=== PATIENT | male | born 1955 | race Hispanic/Latino ===

== ENCOUNTER 2018-07-18 22:29 | Observation (INO) | payer OTHER, SELFPAY ==
[2018-07-18 22:53] LABS: #Basophils 0.1 thou/uL (0.0-0.2); #Eosinphils 0.3 thou/uL (0.0-0.7); #Lymphocytes 3.5 thou/uL (1.20-3.40); #Monocytes 0.7 thou/uL (0.11-0.59); #Neutrophils 4.1 thou/uL (1.40-6.50); %Eosinophils 3.7 % (0.0-10.0); %Lymphocytes 40.1 % (21.0-51.0); %Monocytes 8.1 % (0.0-10.0); %Neutrophils 47.1 % (42.0-75.0); Mean Corpuscular HGB CONC 34.6 g/dL (32.0-36.0); Mean Corpuscular Hemoglobin 30.8 pg (27.0-31.0); Mean Corpuscular Volume 88.9 fL (78.0-98.0); Mean Platelet Volume 7.7 fL (7.4-10.4); Platelet Count 182 thou/uL (130-400); RBC Distribution Width 11.3 % (11.5-14.5); Red Blood Cell (RBC) Count 4.86 mill/uL (4.70-6.10); White Blood Cell (WBC) Count 8.7 thou/uL (4.8-10.8)
--- NOTE | 2018-07-18 23:01 | RAD ---
CHEST ONE VIEW: 07/18/18 HISTORY: Chest pain and shortness of breath. Heart size is within normal limits. There is some old granuloma calcifications. No confluent pneumoni a, overt edema or pleural effusion. IMPRESSION: No acute intrathoracic disease. Old granulomatous disease. Atherosclerosis of the aorta. POS: [facility]
[2018-07-18 23:15] LABS: ALT (SGPT) 27 U/L (8-55); AST (SGOT) 22 U/L (5-34); Albumin 4.2 g/dL (3.4-4.8); Alkaline Phosphatase 52 U/L (40-150); Anion Gap 13 mmol/L (10-20); BUN (Urea Nitrogen) 26 mg/dL (8.4-25.7); Bilirubin, Total 0.3 mg/dL (0.2-1.2); Calc. Creatinine Clearance 0 mL/min (70-130); Calcium 9.4 mg/dL (7.8-10.44); Carbon Dioxide 25 mmol/L (23-31); Chloride 106 mmol/L (98-107); Estimated GFR-MDRD 87; Globulin 3.1 g/dL (2.4-3.5); Glucose 132 mg/dL (80-115); Potassium 3.7 mmol/L (3.5-5.1); Protein, Total 7.3 g/dL (5.8-8.1); Sodium 140 mmol/L (136-145)
[2018-07-19] MEDS ORDERED: Ondansetron ODT 4 MG TAB SL PRN (03:30)
[2018-07-19] MEDS ORDERED: Acetaminophen 325 MG TAB PO PRN (03:30)
[2018-07-19] MEDS ORDERED: Ondansetron PF 4 MG/2 ML Vial IVP PRN (03:30)
[2018-07-19 03:55] VITALS: BMI 32.9
[2018-07-19] MEDS ORDERED: HYDROcodone/Acetaminophen 10/325 mg Tablet PO PRN (05:10)
[2018-07-19] MEDS ORDERED: HumaLOG 300 UNITS/3 ML VIAL SC PRN (05:10)
[2018-07-19] MEDS ORDERED: Dextrose 50% Abboject 50 ML SYRINGE SLOW IVP PRN (05:10)
[2018-07-19] MEDS ORDERED: Dextrose 5% in Water 1,000 ML IV PRN (05:10)
[2018-07-19] MEDS ORDERED: Nitroglycerin 2% Ointment 1 INCH/1 GM Packet TOP SCH (06:00)
--- NOTE | 2018-07-19 07:54 | HP ---
PRIMARY CARE PHYSICIAN: The patient goes to the [facility]. CODE STATUS: The patient is full code. TIME OF EVALUATION: 5:10 a.m. CHIEF COMPLAINT: Chest pain. HISTORY OF PRESENT ILLNESS: This is a 63-year-old male patient with past medical history of diabetes type 2, hyperlipidemia, hypertension, who came to the hospital after having chest pain that started around 10 p.m, it was epigastric associated with dizziness. No clear triggers. No alleviating factors. He reported in the past week that he has been having the pain on and off. The pain was rated as moderate. REVIEW OF SYSTEMS: CONSTITUTIONAL: No fever, chills, or generalized weakness. RESPIRATORY: No cough, sputum production, or shortness of breath. CARDIOVASCULAR: Chest pain. No palpitations. GASTROINTESTINAL: No nausea, vomiting, diarrhea, or abdominal pain. 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 GENITOURINARY: No burning on urination. EXTREMITIES: No leg swelling. All other systems were reviewed and negative except for the findings mentioned above. PAST MEDICAL HISTORY: As mentioned in the HPI. SURGICAL HISTORY: 1. Right ankle replacement. 2. Carpal tunnel surgery. PSYCH HISTORY: No previous psych history. SOCIAL HISTORY: The patient smokes tobacco one pack per day. FAMILY HISTORY: Reviewed and noncontributory for current presentation. ALLERGIES: NO KNOWN DRUG ALLERGIES REPORTED. MEDICATIONS: 1. Amlodipine. 2. Atenolol. 3. Hydrochlorothiazide. 4. Allopurinol. 5. Acetaminophen. 6. Metformin. PHYSICAL EXAMINATION: VITAL SIGNS: On presentation, blood pressure 177/95 with heart rate 77, respiratory rate was 18, temperature 99.8, pain 5/10, oxygen saturation 99 on room air. GENERAL APPEARANCE: The patient is alert, oriented, in no acute distress. HEENT: Eyes normal conjunctivae. Moist oral mucosa. Anicteric. No JVD. RESPIRATORY: Bilateral air entry. No rales. No wheezes. Symmetric expansion. CARDIOVASCULAR: Normal rate, regular rhythm. No murmurs. No gallops. No edema. ABDOMEN: Soft. Normal bowel sounds. MUSCULOSKELETAL: Baseline range of motion and strength. No tenderness. SKIN: Warm and intact. No pallor. No rash. No redness. Peripheral pulses are present. Capillary refill seems to be intact. NEUROLOGIC: No evidence of any new focal weakness. Baseline speech. Cranial nerves seems to be intact. PSYCH: The patient is in good mood. Optimal judgment. IMAGING: EKG was reviewed. The patient has normal sinus rhythm at the rate of 67, AR 200, QRS 102, QT corrected 407. Chest x-ray, no acute intrathoracic disease, or granulomatous disease or atherosclerosis of the aorta. LABORATORY DATA: Labs were reviewed. The patient has white count 9.7, hemoglobin 15, MCV 88.9, platelet count 192. D-dimer 0.38. Chemistry; sodium 140, potassium 3.7, chloride 106, carbon dioxide 25, anion gap 13, BUN 26, creatinine 0.88, GFR 87, glucose 132. Troponin was negative x2. 251. ASSESSMENT AND PLAN: The patient will be placed in the hospital with following medical problems: 1. Chest pain, rule out acute coronary syndrome. The patient is high risk due to coronary artery disease. We will trend troponins. Follow on the monitor. Stress test has been ordered, the patient is able to walk properly, so we will do a chemical nuclear. 2. Uncontrolled diabetes. The patient has a blood sugar of 132. Place the patient on sliding scale for optimal control. 3. Uncontrolled blood pressure. His systolic blood pressure was 177/95. We will reconcile home medications, we will adjust treatment as needed. 4. Hyperlipidemia. We will reconcile home medications. Low cholesterol diet is advised. 5. Deep venous thrombosis prophylaxis. Job ID: [id number]
[2018-07-19] MEDS ORDERED: Hydrochlorothiazide 25 MG TAB PO SCH (09:00)
[2018-07-19] MEDS ORDERED: Amlodipine 5 MG TAB PO SCH (09:00)
[2018-07-19] MEDS ORDERED: Atenolol 50 MG TAB PO SCH (09:00)
--- NOTE | 2018-07-19 11:32 | PDOC.PN ---
- Subjective Encounter Start Date: 07/19/18 Encounter Start Time: 11:30 Subjective: Patient feeling significantly better, back to baseline. No SOB or CP. -: Reports having epigastric abdominal bloating but that has resolved. -: Has moved his bowels and felt better after. No fever, chills or sweats. States his breathing feels back to normal. Has undergone stress test this morning. - Objective Vital Signs & Weight: Vital Signs (12 hours) Temp Pulse Resp BP BP Pulse Ox 07/19/18 11:23 69 167/82 H 07/19/18 09:05 61 158/82 H 07/19/18 07:56 98.1 F 61 16 158/82 H 96 07/19/18 03:16 97.8 F 60 18 156/82 H 98 Weight Weight 229 lb 11.2 oz I&O: 07/18/18 07/19/18 07/20/18 06:59 06:59 06:59 Intake Total 0 Balance 0 Result Diagrams: 07/18/18 22:42 07/18/18 22:42 Additional Labs: Accuchecks 07/19/18 03:53 POC Glucose 117 H Phys Exam - Physical Examination Constitutional: NAD HEENT: PERRLA, oral pharynx no lesions Neck: no nodes, supple, full ROM Respiratory: clear to auscultation bilateral Cardiovascular: RRR Gastrointestinal: soft, non-tender, no distention, positive bowel sounds Musculoskeletal: no edema, pulses present Neurological: normal sensation, moves all 4 limbs Lymphatic: no nodes Psychiatric: normal affect, A&O x 3 Dx/Plan (1) Epigastric abdominal pain Code(s): R10.13 - EPIGASTRIC PAIN Status: Resolved (2) Hypertension Code(s): I10 - ESSENTIAL (PRIMARY) HYPERTENSION Status: Chronic (3) Diabetes mellitus Code(s): E11.9 - TYPE 2 DIABETES MELLITUS WITHOUT COMPLICATIONS Status: Chronic Qualifiers: Diabetes mellitus type: type 2 Diabetes mellitus complication status: without complication - Plan cont current plan of care, out of bed/ambulate, DVT proph w/lovenox Asymptomatic. Trop x 3 negative. S/p stress test. Awaiting results. -: Continue meds. Monitor BP. Monitor Glucose. -: Check labs today (CBC w/diff and BMP). -: Resume heart healthy diet. Encourage fluid intake. -: Possible discharge, pending results of stress test. * .
[2018-07-19 11:53] LABS: #Eosinphils 0.1 thou/uL (0.0-0.7); #Lymphocytes 1.5 thou/uL (1.20-3.40); #Monocytes 0.4 thou/uL (0.11-0.59); #Neutrophils 6.5 thou/uL (1.40-6.50); %Basophils 0.4 % (0.0-1.0); %Lymphocytes 17.5 % (21.0-51.0); %Monocytes 4.7 % (0.0-10.0); %Neutrophils 76.5 % (42.0-75.0); Hemoglobin 14.7 g/dL (14.0-18.0); Mean Corpuscular HGB CONC 34.4 g/dL (32.0-36.0); Mean Corpuscular Hemoglobin 30.5 pg (27.0-31.0); Mean Corpuscular Volume 88.6 fL (78.0-98.0); Mean Platelet Volume 7.5 fL (7.4-10.4); Platelet Count 187 thou/uL (130-400); RBC Distribution Width 11.3 % (11.5-14.5); Red Blood Cell (RBC) Count 4.82 mill/uL (4.70-6.10); White Blood Cell (WBC) Count 8.5 thou/uL (4.8-10.8)
[2018-07-19 12:14] LABS: Anion Gap 16 mmol/L (10-20); BUN (Urea Nitrogen) 18 mg/dL (8.4-25.7); CK (CPK) 155 U/L (30-200); Calc. Creatinine Clearance 134 mL/min (70-130); Calcium 9.3 mg/dL (7.8-10.44); Carbon Dioxide 20 mmol/L (23-31); Chloride 106 mmol/L (98-107); Estimated GFR-MDRD Greater than 90; Glucose 175 mg/dL (80-115); Potassium 3.9 mmol/L (3.5-5.1); Sodium 138 mmol/L (136-145)
--- NOTE | 2018-07-19 12:29 | NM ---
MYOCARDIAL PERFUSION SCAN WITH SPECT IMAGING: HISTORY: Chest pain. History of diabetes. TECHNIQUE/FINDINGS: Examination is performed using 28.7 mCi 99m-technetium sestamibi on the stress and 10.4 on the restin g images. This shows a normal distribution of radiopharmaceutical. No signs of ischemia or scar. WALL MOTION: There is symmetric contractility to the ventricle. LEFT VENTRICULAR EJECTION FRACTION: The calculated left ventricular ejection fraction is 60%. IMPRESSION: Unremarkable myocardial perfusion scan. POS: [facility]
[2018-07-19] MEDS ORDERED: Regadenoson 0.4 MG/5 ML SYRINGE ONE (13:20)
[2018-07-19 17:41] VITALS: BP 132/85; TEMP 98.4
--- NOTE | 2018-07-19 19:27 | DIS ---
DATE OF ADMISSION: 07/19/2018 DATE OF DISCHARGE: 07/19/2018 CHIEF COMPLAINT: Chest/epigastric pain. CONSULTING PHYSICIANS: None. HOSPITAL COURSE: Mr. Ndiaye is a pleasant 63-year-old man, who has a background history of diabetes mellitus type 2, hypertension, hyperlipidemia, who was admitted for chest pain rule out after experiencing epigastric discomfort associated with lightheadedness. The patient states he normally walks 2 miles a day without any difficulty. He states the pain happened after he had been out walking. He has undergone laboratory studies including D-dimer that was negative and serial troponins that were all negative. On laboratory studies done on initial presentation were notable for a slightly elevated BUN of 26 and today it is normal at 18. His eGFR yesterday was 87 and today it is greater than 90. He has been tolerating oral intake and has been without any further episodes of chest pain during his admission. His glucose has been controlled in the 170s. His CK yesterday was 251 and today is 155. BNP was done, which was normal at 17.1. LFTs were unremarkable. He has undergone investigations including a chest x-ray on July 18, 2018, showing no acute intrathoracic disease. There was old granulomatous disease with atherosclerosis of the aorta. A stress test was done today on 07/19/2018 demonstrating an unremarkable myocardial perfusion scan with an EF of 60%. The patient has been cleared for discharge home. REVIEW OF SYSTEMS: At this time, the patient denies having any chest pain, palpitations, or shortness of breath. No cough or hemoptysis. Denies having any headaches or dizziness. No blurred vision. Denies any lightheadedness or dizziness. Has not had any abdominal pain or cramping. Moving his bowels and denies any diarrhea or constipation. No urinary symptoms. Has not had any fevers, chills, or sweats. All other review of systems are negative. PHYSICAL EXAMINATION: GENERAL: The patient appears well developed, well nourished, in no acute distress. VITAL SIGNS: Temperature 98.4, pulse 59, blood pressure 167/82, respirations 16 , O2 saturation 96% on room air. The blood pressure was rechecked as he has been given his morning dose of atenolol since undergoing his stress test. The blood pressure has normalized to 132/85. HEENT: Normocephalic and atraumatic. PERRLA. EOM normal. Oropharynx clear. Neck supple. Full ROM. LUNGS: Clear bilaterally CARDIAC: Normal heart sounds, S1 and S2 ABDOMEN: Soft, nontender nondistended, normal bowel sounds. EXTREMITIES: Without edema or swelling SKIN: Without rash or jaundice. NEURO: Alert and oriented x 3. DISCHARGE MEDICATIONS: The patient advised to resume regular home medications, which include. 1. Metformin 500 mg p.o. b.i.d. 2. Hydrocodone/APAP 10/325 mg 1 tablet p.o. every 4 hours as needed for pain. 3. Hydrochlorothiazide 25 mg p.o. daily. 4. Atenolol 50 mg p.o. daily. 5. Amlodipine 2.5 mg p.o. daily. INVESTIGATIONS: As mentioned above in the hospital course. CONDITION: Stable at discharge. DIET: Heart healthy/diabetic diet. ACTIVITY: As tolerated. FOLLOWUP: The patient advised to follow up with his primary care physician within the next week. DISPOSITION: The patient is medically cleared for discharge home today, July 19, 2018. The patient's case was discussed with Dr. Lees, who agrees with plan of care as described above. Job ID: [id number] MTDD
--- NOTE | 2018-07-25 15:28 | EKG ---
Test Reason : Blood Pressure : / mmHG Vent. Rate : 067 BPM Atrial Rate : 067 BPM P-R Int : 200 ms QRS Dur : 102 ms QT Int : 386 ms P-R-T Axes : 027 -38 034 degrees QTc Int : 407 ms Normal sinus rhythm Left axis deviation Septal infarct , age undetermined Abnormal ECG Confirmed by ROEL LYNN, MARLON ([id number]), film editor NURYS MATUTE ([id number]) on 07/25/2018 3:28:21 PM Referred By: Confirmed By:MARLON SEVILLA MD
== END 2018-07-19 17:43 | disposition home or self-care (01) ==
LOC: ERS 22:29 → 2SW 07-19 00:58
PROVIDERS: ADMIT Hospitalist; ATTEND Hospitalist
DX: R07.89 Other chest pain (principal); R10.13 Epigastric pain; R42 Dizziness and giddiness; I70.0 Atherosclerosis of aorta; E11.9 Type 2 diabetes mellitus without complications; E78.5 Hyperlipidemia, unspecified; I10 Essential (primary) hypertension; F17.210 Nicotine dependence, cigarettes, uncomplicated; Z79.84 Long term (current) use of oral hypoglycemic drugs; Z79.899 Other long term (current) drug therapy
CPT/HCPCS: 36415; 36416; 71045; 78452; 80048; 80053; 82550; 83690; 83880; 84484; 85025; 85379; 93005; 93017; 94760; 96374; A9500; G0378; J2785